=== PATIENT | male | born 1995 | race African-American/Black ===

== ENCOUNTER 2017-06-19 10:02 | Emergency (ER) | payer OTHER ==
[~2017-06-19] VITALS: Ht 175.3 cm; Wt 84.1 kg
[2017-06-19] MEDS ORDERED: OMEP40CA2 PO (11:31)
[2017-06-19 11:44] VITALS: BP 118/78
== END 2017-06-19 11:45 | disposition home or self-care (01) ==
LOC: M ED 10:02
DX: R13.10 Dysphagia, unspecified (principal); F17.200 Nicotine dependence, unspecified, uncomplicated

== ENCOUNTER → 2017-06-23 | Outpatient (CLI) | payer OTHER ==
[~2017-06-23] MED LIST: E-Z-GAS II EFFERVESCENT PACKET (SODIUM BICARB./CITRIC ACID/SIMETHICONE) As Ordered ONE; E-Z-HD 98% w/w 340GM SUSP BTL As Ordered ONE; E-Z-PAQUE 96% w/w SUSP 176GM BTL As Ordered ONE; OMEP40CA2 PO
--- NOTE | 2017-06-23 17:48 | REP ---
UPPER GI, AIR CONTRAST: The procedure was performed under the direct supervision of Dr. Pritchard. The images were reviewed with Dr. Pritchard. 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 The intestinal gas pattern is nonspecific. Liquid barium and gas-producing granules were given in the erect position as well as liquid barium in the prone oblique position in order to perform a double contrast upper GI examination. The oral and pharyngeal stages of deglutition are unremarkable. Esophageal transport is prompt and efficient and there is no esophagitis, stricture, mucosal ring or hiatal hernia. There is gastroesophageal reflux demonstrated to above the level of the maribel. The stomach horvath are normally outlined. The rugal folds are smooth and regular. There is no gastritis, neoplasm or ulcer disease. The duodenal horvath are normally outlined. The mucosal folds are smooth and regular. There is no duodenitis, pancreatitis, peptic ulcer disease or neoplasm. The visualized portion of the proximal small bowel appears normal in course and caliber. IMPRESSION: There is gastroesophageal reflux demonstrated to the above the level of the maribel, otherwise unremarkable double contrast upper GI examination. 2 minutes of fluoroscopy time was utilized for this procedure. Reviewed by LOPEZ Alexander 06/24/2017 01:12 PEdited and Signed by Vance Pritchard MD 06/24/2017 07:15 P
== END ==
LOC: M RAD 11:35
PROVIDERS: ATTEND Emergency Medicine
DX: K21.9 Gastro-esophageal reflux disease without esophagitis (principal); R13.10 Dysphagia, unspecified